=== PATIENT | female | born 1995 | race Two or more races ===

== ENCOUNTER 2021-01-12 21:28 | Emergency (ER) | payer OTHER ==
[2021-01-12] MEDS ORDERED: SODIUM CHLORIDE 0.9% 1,000 ML IV STA (22:00)
[2021-01-12] MEDS ORDERED: PROCHLORPERAZINE 10 MG/2 ML VIAL IVP STA (22:00)
[2021-01-12] MEDS ORDERED: diphenhydrAMINE INJ 50 MG/ML VIAL IVP STA (22:00)
[2021-01-12] MEDS ORDERED: KETOROLAC 30 MG/ML VIAL IVP STA (22:00)
[2021-01-12] MEDS ORDERED: DEXAMETHASONE 10 MG/ML VIAL IVP STA (22:00)
--- NOTE | 2021-01-12 22:04 | ED Physician Documentation ---
PD HPI HEADACHE - Stated complaint Stated Complaint: HEADACHE, DROWSEY - Chief complaint Chief Complaint: Neuro - History obtained from History obtained from: Patient - History of Present Illness Timing - onset: How many days ago (3) Timing - onset during: Rest Timing - duration: Days (3) Timing - details: Gradual onset, Still present Worst headache ever?: No: Worst headache ever? Location: Right Quality: Aching Associated symptoms: Nausea, Vomiting, Other (photophobia). No: Fever, Stiff neck, Weakness, Numbness, Syncope, Seizure, Eye pain, Vision changes Improved by: Rest, Dark room, Quiet Worsened by: Light Contributing factors: No: Anticoagulated Similar symptoms before: Has not had sx before Recently seen: Not recently seen - Additional information Additional information: 25-year-old female with a history of Crohn's disease and fibromyalgia has d eveloped a headache 3 days ago on the right side of her head and this has not resolved. She states headaches of 6 out of 10 and she did have some nausea and vomiting yesterday which she attributed to eating Doritos. She does have a history of Crohn's disease and she has foods that will trigger this. She believes this is what happened yesterday with vomiting. She does have some photophobia associated with this and she does not have a history of migraine headaches. She has had a recent URI and she had a negative Covid test the symptoms improved and then she got symptoms back again with some postnasal drainage. She has a headache on the right side of her head. She had a headache on the left side last week that resolved. She does not usually get headaches. She is under some stress as she has a test due tomorrow. Review of Systems Constitutional: denies: Fever Eyes: reports: Photophobia. denies: Decreased vision Ears: denies: Loss of hearing, Ear pain, Drainage/discharge, Tinnitus/ringing Nose: reports: Rhinorrhea / runny nose, Congestion. denies: Sinus pressure / pain Throat: denies: Sore throat Cardiac: denies: Chest pain / pressure, Palpitations Respiratory: reports: Cough (resolved). denies: Dyspnea GI: reports: Abdominal Pain (resolved), Nausea (resolved), Vomiting (yesterday) : denies: Dysuria, Frequency Skin: denies: Rash Musculoskeletal: denies: Neck pain, Back pain, Extremity pain Neurologic: reports: Headache. denies: Generalized weakness, Focal weakness, Numbness, Syncope, Seizure, Confused, Head injury, LOC PD PAST MEDICAL HISTORY - Present Medications Home Medications: Ambulatory Orders Medication Instructions Recorded Confirmed Azithromycin [Zithromax] 250 mg PO DAILY #6 tablet 01/12/21 - Allergies Allergies/Adverse Reactions: Allergies Allergy/AdvReac Type Severity Reaction Status Date / Time NSAIDS (Non-Steroidal AdvReac Unknown Verified 01/12/21 21:33 Anti-Inflamma PD ED PE NORMAL - Vitals Vital signs reviewed: Yes (tachy and hypertensive ) - General General: Alert and oriented X 3, No acute distress, Well developed/nourished - HEENT HEENT: Atraumatic, PERRL, EOMI, Pharynx benign, Other (Right TM is inflamed with loss of definition of landmarks. Left is clear. ) - Neck Neck: Supple, no meningeal sign, No bony TTP - Cardiac Cardiac: RRR, No murmur - Respiratory Respiratory: No respiratory distress, Clear bilaterally - Abdomen Abdomen: Normal bowel sounds, Soft, Non tender, Non distended, No organomegaly - Back Back: No CVA TTP, No spinal TTP - Derm Derm: Normal color, Warm and dry, No rash - Extremities Extremities: No deformity, No edema - Neuro Neuro: Alert and oriented X 3, electrical and radio mechanic 2-12 intact, No motor deficit, No sensory deficit, Normal speech Eye Opening: Spontaneous Motor: Obeys Commands Verbal: Oriented GCS Score: 15 - Psych Psych: Normal mood, Normal affect Results - Vitals Vitals: Vital Signs - 24 hr 01/12/21 01/12/21 21:33 23:25 Temperature 36.1 C L 98.3 C H Heart Rate 107 H 84 Respiratory 16 14 Rate Blood Pressure 135/89 H 128/92 H O2 Saturation 97 100 Oxygen O2 Source Room air Procedures - IVC sono (time) 2150 Bedside IVC sono: IVC measures (cm) (0.98), Dehydration (est > 1 liter deficit) PD MEDICAL DECISION MAKING - ED course Complexity details: reviewed results, re-evaluated patient, considered differential, d/w patient ED course: Please well 25-year-old female with a history of fibromyalgia and Crohn's disease presents to the emergency department with a headache on the right side of her head and she has some photophobia associated with this and she has had some nausea and vomiting headaches been present for 3 days. She has had a bimodal illness with recurrence of postnasal drip and on examination has right otitis. I examined the patient's scalp and do not find any evidence of zoster. Here in the emerge department she is found to be dehydrated on interrogation the inferior vena cava and she is administered a migraine cocktail consisting of a liter of saline 10 mg of dexamethasone 10 mg of Compazine 25 mg of Benadryl and 30 mg of Toradol intravenously. This resolved the patient's symptoms. Departure - Departure Disposition: 01 Home, Self Care Clinical Impression: Stress reaction Headache Qualifiers: Headache type: tension-type Headache chronicity pattern: acute headache Intractability: not intractable Qualified Code(s): G44.209 - Tension-type head ache, unspecified, not intractable Otitis media Qualifiers: Otitis media type: suppurative Chronicity: acute Laterality: right Recurrence: not specified as recurrent Spontaneous tympanic membrane rupture: without spontaneous rupture Qualified Code(s): H66.001 - Acute suppurative otitis media without spontaneous rupture of ear drum, right ear Condition: Stable Instructions: ED Stress React, ED Headache Tension, ED Otitis Media Acute Adult Follow-Up: LACY GROVE ARNP [Primary Care Provider] - Prescriptions: Azithromycin [Zithromax] 250 mg PO DAILY #6 tablet Discharge Date/Time: 01/12/21 23:30
[2021-01-12 23:30] VITALS: BP 128/92
== END 2021-01-12 23:30 | disposition home or self-care (01) ==
LOC: ED 21:28
DX: G44.209 Tension-type headache, unspecified, not intractable (principal); F43.9 Reaction to severe stress, unspecified; H66.001 Acute suppurative otitis media without spontaneous rupture of ear drum, right ear; E86.0 Dehydration; M79.7 Fibromyalgia; Z87.19 Personal history of other diseases of the digestive system
CPT/HCPCS: 36415; 96361; 96374; 99284; 99285; J1200